=== PATIENT | male | born 1985 | race Native Hawaiian/Other Pacific Islander ===

== ENCOUNTER 2019-11-24 16:48 | Emergency (ER) | payer OTHER ==
[~2019-11-24] VITALS: Ht 167.6 cm; Wt 94.3 kg
[2019-11-24 18:13] LABS: POTASSIUM 3.3 mmol/L (3.6-5.2)
[2019-11-24 18:18] LABS: PLATELET COUNT 230 K/uL (142-355)
[2019-11-24 20:05] VITALS: BP 141/76; TEMP 98
== END 2019-11-24 20:05 | disposition home or self-care (01) ==
LOC: ED 16:48
PROVIDERS: Hospitalist
DX: R10.10 Upper abdominal pain, unspecified (principal); K29.70 Gastritis, unspecified, without bleeding; K59.00 Constipation, unspecified
CPT/HCPCS: 36415; 80053; 83690; 85027; 96360; 96365; 96374; 96375; 99284; J1885; J2405